=== PATIENT | female | born 1960 | race Caucasian/White ===

== ENCOUNTER → 2020-06-30 | Outpatient (CLI) | payer OTHER ==
[~2020-06-30] MED LIST: AMLO10 PO; AMOCLA875 PO; AMOX500 PO; ATOR80 PO; Ativan1 MG PO; BACL10 PO; CIPR500 PO; CLON.1; CLON.5; CLOP75 PO; CODACE30 PO; FISH1000 PO; FLUO10 PO; FLUO20; GABA100 PO; HYDACE5 PO; HYDCHL25; HYDCHL25 PO; HYDRA25 PO; IBUP800 PO; LISI10; LISI10 PO; LOSA25 PO; LOSA50 PO; META800; METO50 PO; NAPR550 PO; NEOCOLOTSU OT; NEOPOLHCSU OT; OXYACE5T; POTCHL10ER PO; POTCHL20ER PO; PROZAC20 MG PO; SULTRIDS PO; TERA5 PO; TRAM50 PO
== END | disposition home or self-care (01) ==
LOC: PLD 08:34 → LAB SHORT 08:34
DX: L28.2 Other prurigo (principal)
CPT/HCPCS: 88305; 88312

== ENCOUNTER → 2021-06-04 | Outpatient (CLI) | payer OTHER | END | disposition home or self-care (01) | LOC: LAB SHORT 07:58 | DX: N85.00 Endometrial hyperplasia, unspecified (principal) | CPT/HCPCS: 88305 ==

== ENCOUNTER → 2021-06-04 | Outpatient (CLI) | payer OTHER ==
[2021-06-06 16:11] LABS: HPV 16 Negative (Negative); HPV 18 Negative (Negative); HPV OTHER HR TYPES Negative (Negative)
== END | disposition home or self-care (01) ==
LOC: LAB 15:00 → LAB SHORT 15:00
PROVIDERS: Internal Medicine
DX: Z12.4 Encounter for screening for malignant neoplasm of cervix (principal)
CPT/HCPCS: 87624; G0123

== ENCOUNTER → 2021-06-25 | Outpatient (CLI) | payer OTHER ==
[~2021-06-25] MED LIST changes: +CEFD300 PO
[2021-06-25 19:46] LABS: Hematocrit 36.3 % (33.0-51.0); Hemoglobin 11.9 g/dL (11.5-16.0); Mean Corpuscular HGB 31.2 pg (26.0-34.0); Mean Corpuscular HGB Conc 32.8 g/dL (31.5-36.5); Mean Corpuscular Volume 95 fL (80-100); Mean Platelet Volume 12.1 fL (9.1-12.4); Platelet Count 233 K/mm3 (150-400); RDW Coefficient Variation 13.3 % (11.7-14.2); RDW Standard Deviation 46.1 fL (35.1-46.3); Red Blood Cell Count 3.81 M/mm3 (3.80-5.20); White Blood Cell Count 17.47 K/mm3 (4.00-11.30)
[2021-06-25 19:59] LABS: Albumin, Blood 2.7 g/dL (3.4-5.0); Albumin/Globulin Ratio 0.7 (0.8-1.8); Bilirubin, Total 0.6 mg/dL (0.1-1.0); Bun/Creatinine Ratio 16.8 (12.0-20.0); Calcium, Blood 7.9 mg/dL (8.5-10.1); Creatinine, Blood 1.79 mg/dL (0.40-1.00); Globulin, Blood 4.1 g/dL (2.2-4.0); Potassium, Blood 3.4 mmol/L (3.5-5.5); Total Protein, Blood 6.8 g/dL (6.4-8.2)
[2021-06-25 20:08] LABS: BAND PERCENT MAN 12 % (0-8); BASOPHILS PERCENT MAN 0 % (0-2); EOSINOPHILS PERCENT MAN 0 % (0-6); LYMPHOCYTES ABSOLUTE MAN 0.17 K/mm3 (0.84-5.20); LYMPHOCYTES PERCENT MAN 1 % (21-46); MONOCYTES PERCENT MAN 0 % (4-13); NEUTROPHILS ABSOLUTE MAN 17.29 K/mm3 (1.96-9.15); SEG NEUTROPHILS PERCENT MAN 87 % (41-73); TOTAL CELLS COUNTED 100
== END | disposition home or self-care (01) ==
LOC: LAB SHORT 14:53
PROVIDERS: Internal Medicine
DX: R10.9 Unspecified abdominal pain (principal)
CPT/HCPCS: 80053; 83690; 85025

== ENCOUNTER 2021-07-26 22:42 | Emergency (ER) | payer OTHER ==
[~2021-07-26] VITALS: Ht 172.7 cm; Wt 63.5 kg
[2021-07-26 23:47] LABS: BASOPHILS PERCENT AUTO 1 % (0-2); EOSINOPHILS PERCENT AUTO 4 % (0-6); Hematocrit 34.8 % (33.0-51.0); Mean Corpuscular HGB 29.2 pg (26.0-34.0); Mean Corpuscular HGB Conc 31.6 g/dL (31.5-36.5); Mean Corpuscular Volume 92 fL (80-100); Mean Platelet Volume 9.4 fL (9.1-12.4); Platelet Count 625 K/mm3 (150-400); RDW Standard Deviation 51.3 fL (35.1-46.3); Red Blood Cell Count 3.77 M/mm3 (3.80-5.20); White Blood Cell Count 8.33 K/mm3 (4.00-11.30)
[2021-07-26 23:52] LABS: IMMATURE GRAN ABSOLUTE AUTO 0.04 K/mm3 (0.00-0.10); IMMATURE GRAN PERCENT AUTO 1 % (0-1); LYMPHOCYTES ABSOLUTE AUTO 3.78 K/mm3 (0.84-5.20); LYMPHOCYTES PERCENT AUTO 45 % (21-46); MONOCYTES ABSOLUTE AUTO 0.49 K/mm3 (0.16-1.47); MONOCYTES PERCENT AUTO 6 % (4-13); NEUTROPHILS ABSOLUTE AUTO 3.62 K/mm3 (1.96-9.15); NEUTROPHILS PERCENT AUTO 43 % (41-73)
[2021-07-26 23:57] LABS: Bun/Creatinine Ratio 15.5 (12.0-20.0); Creatinine, Blood 1.03 mg/dL (0.40-1.00); Potassium, Blood 4.3 mmol/L (3.5-5.5)
[2021-07-27] MEDS ORDERED: SYNTHROID PO (00:12)
[2021-07-27] MEDS ORDERED: MONT10T PO (00:12)
[2021-07-27] MEDS ORDERED: Cetirizine HCl10 MG PO (00:13)
== END 2021-07-27 02:11 | disposition home or self-care (01) ==
LOC: ER 22:42
PROVIDERS: Student in an Organized Health Care Education/Training Program
DX: I10 Essential (primary) hypertension (principal); R51.9 Headache, unspecified; R07.89 Other chest pain; Z79.899 Other long term (current) drug therapy; Z87.891 Personal history of nicotine dependence
CPT/HCPCS: 70450; 71046; 80048; 83735; 83880; 84484; 85025; 93005; 93010; 96374; 96375; 99284-25; J1885; J2765; J7030

== ENCOUNTER → 2021-09-19 | Outpatient (CLI) | payer OTHER ==
[~2021-09-19] MED LIST changes: +Cetirizine HCl10 MG PO; +MONT10T PO; +SYNTHROID PO
== END ==
LOC: LAB SHORT 10:00 → LAB 10:00
DX: R82.90 Unspecified abnormal findings in urine (principal)
CPT/HCPCS: 87077; 87086; 87186

== ENCOUNTER → 2021-11-08 | Outpatient (CLI) | payer OTHER | END | disposition home or self-care (01) | LOC: LAB 14:20 → LAB SHORT 14:20 | DX: R30.9 Painful micturition, unspecified (principal) | CPT/HCPCS: 87077; 87086; 87186 ==

== ENCOUNTER → 2021-11-15 | Outpatient (CLI) | payer OTHER ==
[2021-11-15 12:16] LABS: Source, Urine Clean Catch
[2021-11-15 14:43] LABS: Bilirubin, Urine Neg (Neg); Blood, Urine 2+ (Neg); Color, Urine Yellow (P-Yellow); Glucose Qualitative, Urine Neg (Neg); Ketones, Urine Neg (Neg); Leukocyte Esterase, Urine 2+ (Neg); Nitrite, Urine Neg (Neg); Protein, Urine Neg (Neg); Specific Gravity, Urine 1.015 (1.003-1.022); Urobilinogen, Urine NORM (Normal)
[2021-11-15 15:24] LABS: Appearance, Urine Hazy (Clear)
[2021-11-15 15:25] LABS: Bacteria Mod /hpf; Squamous Epithelial Cells Few /hpf (Few)
== END | disposition home or self-care (01) ==
LOC: LAB SHORT 12:14 → LAB 12:14
PROVIDERS: Internal Medicine
DX: R30.0 Dysuria (principal)
CPT/HCPCS: 81001; 87086

== ENCOUNTER → 2023-01-20 | Outpatient (CLI) | payer OTHER ==
[2023-01-22 02:11] LABS: CHLAMYDIA TRACHOMATIS, NAA Negative (Negative)
== END | disposition home or self-care (01) ==
LOC: LAB SHORT 12:44 → LAB 12:44
PROVIDERS: Family Medicine
DX: R59.0 Localized enlarged lymph nodes (principal)
CPT/HCPCS: 87491; 87591

== ENCOUNTER 2024-05-30 05:12 | Inpatient (IN) | payer OTHER ==
[~2024-05-30] VITALS: Ht 172.7 cm; Wt 57.5 kg
[2024-05-30] MEDS ORDERED: Lactated Ringer's 1,000 ML IV ONE ×2 (06:10→13:00)
[2024-05-30] MEDS ORDERED: Acetaminophen 325 MG TABLET PO ONE (06:10)
[2024-05-30 06:54] LABS: BASOPHILS ABSOLUTE AUTO 0.05 K/mm3 (0.00-0.23); BASOPHILS PERCENT AUTO 0 % (0-2); EOSINOPHILS PERCENT AUTO 0 % (0-6); Hematocrit 28.6 % (33.0-51.0); Hemoglobin 10.4 g/dL (11.5-16.0); IMMATURE GRAN ABSOLUTE AUTO 0.11 K/mm3 (0.00-0.10); IMMATURE GRAN PERCENT AUTO 1 % (0-1); LYMPHOCYTES ABSOLUTE AUTO 0.36 K/mm3 (0.84-5.20); LYMPHOCYTES PERCENT AUTO 3 % (21-46); MONOCYTES ABSOLUTE AUTO 0.54 K/mm3 (0.16-1.47); MONOCYTES PERCENT AUTO 5 % (4-13); Mean Corpuscular HGB 35.3 pg (26.0-34.0); Mean Corpuscular HGB Conc 36.4 g/dL (31.5-36.5); Mean Corpuscular Volume 97 fL (80-100); Mean Platelet Volume 10.1 fL (9.1-12.4); NEUTROPHILS ABSOLUTE AUTO 10.98 K/mm3 (1.96-9.15); NEUTROPHILS PERCENT AUTO 91 % (41-73); Platelet Count 168 K/mm3 (150-400); RDW Coefficient Variation 12.9 % (11.7-14.2); RDW Standard Deviation 45.3 fL (35.1-46.3); Red Blood Cell Count 2.95 M/mm3 (3.80-5.20); White Blood Cell Count 12.04 K/mm3 (4.00-11.30)
[2024-05-30 07:13] LABS: Albumin, Blood 2.5 g/dL (3.4-5.0); Albumin/Globulin Ratio 0.6 (0.8-1.8); Bilirubin, Total 1.3 mg/dL (0.1-1.0); Bun/Creatinine Ratio 17.2 (12.0-20.0); Calcium, Blood 7.7 mg/dL (8.5-10.1); Creatinine, Blood 1.28 mg/dL (0.40-1.00); Globulin, Blood 3.9 g/dL (2.2-4.0); Potassium, Blood 2.5 mmol/L (3.5-5.5); Total Protein, Blood 6.4 g/dL (6.4-8.2)
[2024-05-30] MEDS ORDERED: Potassium Chloride 20 MEQ TabCR PO ONE (07:30)
[2024-05-30 07:32] LABS: Source, Urine Straight Cath
[2024-05-30 07:43] LABS: Appearance, Urine Hazy (Clear); Bilirubin, Urine Neg (Neg); Blood, Urine 5+ (Neg); Color, Urine Yellow (P-Yellow); Glucose Qualitative, Urine Neg (Neg); Ketones, Urine Neg (Neg); Leukocyte Esterase, Urine 3+ (Neg); Nitrite, Urine Neg (Neg); Protein, Urine 3+ (Neg); Specific Gravity, Urine 1.005 (1.003-1.022); Urobilinogen, Urine 1+ (Normal); pH, Urine 6.5 (5.0-8.0)
[2024-05-30 08:05] LABS: Bacteria Many /hpf; Red Blood Cells, Urine 25-50 /hpf (0-2); Squamous Epithelial Cells Many /hpf (Few); White Blood Cells, Urine 50-100 /hpf (0-5)
[2024-05-30] MEDS ORDERED: CefTRIAXone Sodium 1,000 MG in NS 50 ML IV ONE (08:35)
[2024-05-30] MEDS ORDERED: CEPH500 PO (09:20)
[2024-05-30] MEDS ORDERED: Ketorolac Tromethamine 30mg Vial IV ONE (10:55)
[2024-05-30 11:39] LABS: Mean Corpuscular HGB Conc 34.3 g/dL (31.5-36.5); Mean Corpuscular Volume 99 fL (80-100); Mean Platelet Volume 10.7 fL (9.1-12.4); Platelet Count 138 K/mm3 (150-400); RDW Coefficient Variation 12.9 % (11.7-14.2); RDW Standard Deviation 46.8 fL (35.1-46.3); Red Blood Cell Count 3.53 M/mm3 (3.80-5.20); White Blood Cell Count 2.08 K/mm3 (4.00-11.30)
[2024-05-30 12:52] LABS: BAND PERCENT MAN 36 % (0-8); BASOPHILS PERCENT MAN 0 % (0-2); EOSINOPHILS PERCENT MAN 0 % (0-6); LYMPHOCYTES ABSOLUTE MAN 0.37 K/mm3 (0.84-5.20); LYMPHOCYTES PERCENT MAN 18 % (21-46); MONOCYTES PERCENT MAN 0 % (4-13); SEG NEUTROPHILS PERCENT MAN 46 % (41-73); TOTAL CELLS COUNTED 100
[2024-05-30] MEDS ORDERED: Lactated Ringer's 1,000 ML IV SCH (13:00)
[2024-05-30] MEDS ORDERED: FLU VACC TS2024-25(6MOS UP)/PF 45 MCG/0.5 ML SYRINGE IM SCH (13:05)
[2024-05-30] MEDS ORDERED: PNEUMOC 20-VAL CONJ-DIP CRM/PF 0.5 ML SYRINGE IM ONE (13:05)
[2024-05-30] MEDS ORDERED: Acetaminophen 325 MG TABLET PO PRN (13:15)
[2024-05-30] MEDS ORDERED: Baclofen 10 MG Tab PO PRN (15:35)
[2024-05-30 16:58] LABS: Bun/Creatinine Ratio 15.2 (12.0-20.0); Calcium, Blood 7.6 mg/dL (8.5-10.1); Creatinine, Blood 1.32 mg/dL (0.40-1.00); Magnesium, Blood 0.6 mg/dL (1.6-2.4); Potassium, Blood 2.8 mmol/L (3.5-5.5)
[2024-05-30 17:16] VITALS: BP 108/73
[2024-05-30] MEDS ORDERED: Magnesium Sulf 2 GM/Water 50ML 50 ML IV SCH (17:20)
[2024-05-30] MEDS ORDERED: Potassium Chl 20MEQ/Water100ML 100 ML IV SCH (17:25)
[2024-05-30] MEDS ORDERED: NS 250 ML IV PRN (18:00)
--- NOTE | 2024-05-30 18:41 | NUR ---
SHIFT SUMMARY; ASSUMED CARE FROM ED IN EVENING. MOVES SELF FROM GURNEY TO BED INDEPENDANTLY. A/A/OX4. CALL LIGHT IN REACH, IV FLUIDS INFUSING, WILL GIVE REPORT TO ONCOMING NOC SHIFT RN TO ASSUME CARE.
[2024-05-30 20:30] VITALS: BP 100/66
[2024-05-30] MEDS ORDERED: Lactobacil 2-S.Thermo-Bifido 1 1 Cap PO SCH (21:00)
[2024-05-30 23:02] LABS: Magnesium, Blood 2.8 mg/dL (1.6-2.4); Potassium, Blood 3.2 mmol/L (3.5-5.5)
[2024-05-31 00:08] VITALS: BP 96/66
[2024-05-31 04:01] VITALS: BP 91/65
[2024-05-31 04:54] LABS: Hemoglobin 9.3 g/dL (11.5-16.0); Mean Corpuscular HGB 34.3 pg (26.0-34.0); Mean Corpuscular HGB Conc 34.4 g/dL (31.5-36.5); Mean Corpuscular Volume 100 fL (80-100); Mean Platelet Volume 11.2 fL (9.1-12.4); Platelet Count 174 K/mm3 (150-400); RDW Coefficient Variation 13.2 % (11.7-14.2); RDW Standard Deviation 47.2 fL (35.1-46.3); Red Blood Cell Count 2.71 M/mm3 (3.80-5.20); White Blood Cell Count 12.23 K/mm3 (4.00-11.30)
[2024-05-31 05:13] LABS: Albumin, Blood 2.2 g/dL (3.4-5.0); Albumin/Globulin Ratio 0.6 (0.8-1.8); Bilirubin, Total 0.4 mg/dL (0.1-1.0); Bun/Creatinine Ratio 18.2 (12.0-20.0); Calcium, Blood 8.1 mg/dL (8.5-10.1); Creatinine, Blood 1.1 mg/dL (0.40-1.00); Globulin, Blood 3.8 g/dL (2.2-4.0); Potassium, Blood 3.9 mmol/L (3.5-5.5)
[2024-05-31 05:56] LABS: BAND PERCENT MAN 2 % (0-8); BASOPHILS PERCENT MAN 0 % (0-2); EOSINOPHILS PERCENT MAN 0 % (0-6); LYMPHOCYTES ABSOLUTE MAN 1.58 K/mm3 (0.84-5.20); LYMPHOCYTES PERCENT MAN 13 % (21-46); MONOCYTES ABSOLUTE MAN 0.61 K/mm3 (0.16-1.47); MONOCYTES PERCENT MAN 5 % (4-13); NEUTROPHILS ABSOLUTE MAN 10.02 K/mm3 (1.96-9.15); SEG NEUTROPHILS PERCENT MAN 80 % (41-73); TOTAL CELLS COUNTED 100
[2024-05-31] MEDS ORDERED: Levothyroxine Sodium 0.025 MG Tab PO SCH (06:00)
--- NOTE | 2024-05-31 06:37 | NUR ---
SHIFT SUMMARY: PT IS A&OX4, MILDLY SLURRED SPEECH AT TIMES R/T PREVIOUS CVA'S. HYPOTENSIVE SYS 90'S, MAP >65. REMAINING VSS ON RA. SR 60'S-70'S. DENIES ANY PAIN. PRN BACLOFEN GIVEN FOR MUSCLE CONTRACTIONS R/T PREVIOUS CVA'S. PT STATES SHE DOES CONSUME 1-2 LONG ISLAND ICED TEAS, 3X A WEEK. NO S/S OF WITHDRAW AT THIS TIME. TOLERATING A REGULAR DIET, DENIES N/V. TAKES PILLS WHOLE WITH FLUID. SBA WITH CANE TO BR. VOIDING LARGE AMOUNTS OF CLEAR, YELLOW URINE. NO BM THIS SHIFT. BED IN LOWEST POSITION, CALL LIGHT WITHIN REACH. CALLS APPROPRIATELY AND IS ABLE TO ADVOCATE NEEDS EFFECTIVELY.
[2024-05-31 07:34] VITALS: BP 94/69
[2024-05-31] MEDS ORDERED: AmLODIPine Besylate 5 MG Tab PO SCH (09:00)
[2024-05-31] MEDS ORDERED: FLUoxetine HCL 20 MG CAP PO SCH (09:00)
[2024-05-31] MEDS ORDERED: Clopidogrel Bisulfate 75 MG Tab PO SCH (09:00)
[2024-05-31] MEDS ORDERED: Enoxaparin 40 MG/0.4 ML SYR SC SCH (09:00)
[2024-05-31] MEDS ORDERED: Atorvastatin 10 MG Tab PO SCH (09:00)
[2024-05-31] MEDS ORDERED: Losartan Potassium 50 MG Tab PO SCH (09:00)
[2024-05-31] MEDS ORDERED: CefTRIAXone Sodium 1,000 MG in NS 100 ML IV SCH (09:00)
[2024-05-31] MEDS ORDERED: FLUoxetine HCL 20 MG CAP PO ONE (10:10)
[2024-05-31 11:38] LABS: Hematocrit 31.3 % (33.0-51.0); Hemoglobin 10.8 g/dL (11.5-16.0); Mean Corpuscular HGB 34.6 pg (26.0-34.0); Mean Corpuscular HGB Conc 34.5 g/dL (31.5-36.5); Mean Corpuscular Volume 100 fL (80-100); Mean Platelet Volume 10.9 fL (9.1-12.4); Platelet Count 204 K/mm3 (150-400); RDW Coefficient Variation 13.2 % (11.7-14.2); RDW Standard Deviation 48.4 fL (35.1-46.3); RETICULOCYTE ABSOLUTE 0.0624 M/mm3 (0.0200-0.1100); Red Blood Cell Count 3.12 M/mm3 (3.80-5.20); White Blood Cell Count 14.21 K/mm3 (4.00-11.30)
[2024-05-31 12:22] LABS: Percent Saturation 6.6 % (15.0-50.0)
[2024-05-31 14:32] LABS: Adenovirus F 40/41 Not Detected (NOT DETECT); Astrovirus Not Detected (NOT DETECT); Campylobacter Sp Not Detected (NOT DETECT); Cryptosporidium Not Detected (NOT DETECT); Cyclospora Cayetanensis Not Detected (NOT DETECT); E. Coli O157 Not Detected (NOT DETECT); Entamoeba Histolytica Not Detected (NOT DETECT); Enteroaggregative E. coli-EAEC Not Detected (NOT DETECT); Enteropathogenic E. coli-EPEC Not Detected (NOT DETECT); Enterotoxigenic E. coli-ETEC Not Detected (NOT DETECT); Giardia Lamblia Not Detected (NOT DETECT); Norovirus GI/GII Not Detected (NOT DETECT); Plesiomonas Shigelloides Not Detected (NOT DETECT); Rotavirus A Not Detected (NOT DETECT); Salmonella Sp Not Detected (NOT DETECT); Sapovirus Not Detected (NOT DETECT); Shiga Toxin-prod E. coli-STEC Not Detected (NOT DETECT); Shigella/Enteroin E. coli-EIEC Not Detected (NOT DETECT); Vibrio Cholerae Not Detected (NOT DETECT); Vibrio Sp Not Detected (NOT DETECT); Yersinia Enterocolitica Not Detected (NOT DETECT)
[2024-05-31 15:25] VITALS: BP 100/67
--- NOTE | 2024-05-31 17:22 | NUR ---
SHIFT SUMMARY THE PT IS A&OX4, 1P SBA W/ CANE D/T CHRONIC LEFT SIDED DEFICIT FROM PREVIOUS CVA'S. PHYSICAL THERAPY WORKED WITH THE PT AND SIGNED OFF ON HER. THE PT IS MEDICAL STATUS W/O TELE. SHE WAS SR ON TELE. BP STABLE. SHE HAS BEEN ON RA AND DENIES ANY SOB. NO ACUTE EVENTS THIS SHIFT. SEE NOTES FOR ANY UPDATES.
[2024-05-31] MEDS ORDERED: Ferrous Gluconate 325 MG Tablet PO ONE (17:50)
--- NOTE | 2024-05-31 18:24 | NUR ---
REPORT GIVEN TO ALTA LOAIZA. PT TRANSFERING TO ROOM 302. NO FURTHER NOTES FROM THIS RN.
--- NOTE | 2024-05-31 18:40 | NUR ---
PT TRANSFERED FROM PCU VIA WHEELCHAIR. REPORT RECIEVED FROM RUTH LOAIZA.
[2024-05-31 19:22] VITALS: BP 120/80
[2024-06-01 04:48] VITALS: BP 115/79
[2024-06-01 06:18] LABS: BASOPHILS ABSOLUTE AUTO 0.02 K/mm3 (0.00-0.23); BASOPHILS PERCENT AUTO 0 % (0-2); EOSINOPHILS ABSOLUTE AUTO 0.05 K/mm3 (0.00-0.68); EOSINOPHILS PERCENT AUTO 1 % (0-6); Hematocrit 27.3 % (33.0-51.0); Hemoglobin 9.2 g/dL (11.5-16.0); IMMATURE GRAN ABSOLUTE AUTO 0.07 K/mm3 (0.00-0.10); IMMATURE GRAN PERCENT AUTO 1 % (0-1); LYMPHOCYTES ABSOLUTE AUTO 0.88 K/mm3 (0.84-5.20); LYMPHOCYTES PERCENT AUTO 12 % (21-46); MONOCYTES PERCENT AUTO 8 % (4-13); Mean Corpuscular HGB 33.7 pg (26.0-34.0); Mean Corpuscular HGB Conc 33.7 g/dL (31.5-36.5); Mean Corpuscular Volume 100 fL (80-100); NEUTROPHILS ABSOLUTE AUTO 5.54 K/mm3 (1.96-9.15); NEUTROPHILS PERCENT AUTO 77 % (41-73); Platelet Count 190 K/mm3 (150-400); RDW Coefficient Variation 13.2 % (11.7-14.2); RDW Standard Deviation 48.3 fL (35.1-46.3); Red Blood Cell Count 2.73 M/mm3 (3.80-5.20); White Blood Cell Count 7.16 K/mm3 (4.00-11.30)
--- NOTE | 2024-06-01 06:41 | NUR ---
Shift Summary Pt fairly anxious t/o the shift. She requested tylenol for some abdominal pressure and baclofen for chronic tremors. She is AOx4, 1SBA in the room with a cane for assitance. VSS, no acute changes.
[2024-06-01 06:44] LABS: Albumin, Blood 2.3 g/dL (3.4-5.0); Albumin/Globulin Ratio 0.6 (0.8-1.8); Bilirubin, Total 0.3 mg/dL (0.1-1.0); Bun/Creatinine Ratio 20.5 (12.0-20.0); Calcium, Blood 7.6 mg/dL (8.5-10.1); Creatinine, Blood 0.93 mg/dL (0.40-1.00); Globulin, Blood 3.8 g/dL (2.2-4.0); Magnesium, Blood 1.8 mg/dL (1.6-2.4); Potassium, Blood 3.1 mmol/L (3.5-5.5); Total Protein, Blood 6.1 g/dL (6.4-8.2)
[2024-06-01 07:39] VITALS: BP 105/69
[2024-06-01] MEDS ORDERED: Potassium Chloride 20 MEQ in NS 90 ML IV SCH (08:00)
[2024-06-01] MEDS ORDERED: FLUoxetine HCL 20 MG CAP PO SCH (09:00)
[2024-06-01] MEDS ORDERED: Potassium Chloride 20 MEQ TabCR PO ONE (11:00)
[2024-06-01] MEDS ORDERED: ATOR20 PO (12:32)
[2024-06-01] MEDS ORDERED: EUTHYROX50 MCG PO (12:34)
[2024-06-01] MEDS ORDERED: VISBIOME 112.51 EACH PO (12:35)
[2024-06-01] MEDS ORDERED: CEFP200 PO (12:35)
--- NOTE | 2024-06-01 13:47 | NUR ---
PT DISCHARGED TO HOME. DISCHARGE INSTRUCTIONS PROVIDED AND EDUCATED ON. ALL VALUABLES RETURNED AND SENT HOME WITH THE PT.
== END 2024-06-01 13:39 | disposition home or self-care (01) | DRG 872 ==
LOC: ER 05:12 → ERHOLD 05:13 → PCU 05:13 → ER 12:26 → ERHOLD 12:26 → PCU 17:07 → MEDS 05-31 15:09 → PCU 05-31 15:09 → MEDS 05-31 18:39 → ENPENDDIS 06-01 11:46 → MEDS 06-01 13:39
PROVIDERS: Emergency Medicine; Family Medicine; ADMIT Hospitalist
DX: A41.51 Sepsis due to Escherichia coli [E. coli] (principal); I69.354 Hemiplegia and hemiparesis following cerebral infarction affecting left non-dominant side; N10 Acute pyelonephritis; E87.20 Acidosis, unspecified; N17.9 Acute kidney failure, unspecified; R65.20 Severe sepsis without septic shock; I10 Essential (primary) hypertension; E87.6 Hypokalemia; E83.42 Hypomagnesemia; D50.0 Iron deficiency anemia secondary to blood loss (chronic); N93.8 Other specified abnormal uterine and vaginal bleeding; F41.9 Anxiety disorder, unspecified; F32.A Depression, unspecified; E03.9 Hypothyroidism, unspecified; Z87.891 Personal history of nicotine dependence; Z79.02 Long term (current) use of antithrombotics/antiplatelets; Z79.890 Hormone replacement therapy
CPT/HCPCS: 36415; 74177; 80048; 80053; 81001; 82607; 82728; 82746; 83540; 83550; 83605; 83735; 84132; 85025; 85027; 85045; 87040; 87077; 87086; 87186; 87507; 94760; 96361; 96365; 96366; 96367; 96372; 96375; 97116; 97162; 99284-25; A9270; G0378; J0696; J1650; J1885; J3475; J3480; J7050; J7120; Q9967

== ENCOUNTER 2024-06-01 18:47 | Observation (INO) | payer OTHER ==
[~2024-06-01] VITALS: Ht 165.1 cm; Wt 59.0 kg
[~2024-06-01 18:47] MED LIST changes: +ATOR20 PO; +CEFP200 PO; +CEPH500 PO; +EUTHYROX50 MCG PO; +VISBIOME 112.51 EACH PO
[2024-06-01 19:49] LABS: BASOPHILS ABSOLUTE AUTO 0.02 K/mm3 (0.00-0.23); BASOPHILS PERCENT AUTO 0 % (0-2); EOSINOPHILS ABSOLUTE AUTO 0.03 K/mm3 (0.00-0.68); EOSINOPHILS PERCENT AUTO 1 % (0-6); Hematocrit 29.3 % (33.0-51.0); Hemoglobin 10.3 g/dL (11.5-16.0); IMMATURE GRAN ABSOLUTE AUTO 0.07 K/mm3 (0.00-0.10); IMMATURE GRAN PERCENT AUTO 1 % (0-1); LYMPHOCYTES ABSOLUTE AUTO 1.07 K/mm3 (0.84-5.20); LYMPHOCYTES PERCENT AUTO 16 % (21-46); MONOCYTES ABSOLUTE AUTO 0.61 K/mm3 (0.16-1.47); MONOCYTES PERCENT AUTO 9 % (4-13); Mean Corpuscular HGB 34.7 pg (26.0-34.0); Mean Corpuscular HGB Conc 35.2 g/dL (31.5-36.5); Mean Corpuscular Volume 99 fL (80-100); Mean Platelet Volume 11.2 fL (9.1-12.4); NEUTROPHILS ABSOLUTE AUTO 4.75 K/mm3 (1.96-9.15); NEUTROPHILS PERCENT AUTO 73 % (41-73); Platelet Count 222 K/mm3 (150-400); RDW Coefficient Variation 13.1 % (11.7-14.2); RDW Standard Deviation 47.1 fL (35.1-46.3); Red Blood Cell Count 2.97 M/mm3 (3.80-5.20); White Blood Cell Count 6.55 K/mm3 (4.00-11.30)
[2024-06-01 19:54] LABS: Source, Urine Clean Catch
[2024-06-01 19:56] LABS: Appearance, Urine Clear (Clear); Bilirubin, Urine Neg (Neg); Blood, Urine 4+ (Neg); Color, Urine Yellow (P-Yellow); Glucose Qualitative, Urine Neg (Neg); Ketones, Urine Neg (Neg); Leukocyte Esterase, Urine 1+ (Neg); Nitrite, Urine Neg (Neg); Protein, Urine 1+ (Neg); Specific Gravity, Urine 1.005 (1.003-1.022); Urobilinogen, Urine NORM (Normal)
[2024-06-01 19:56] LABS: Albumin, Blood 2.7 g/dL (3.4-5.0); Albumin/Globulin Ratio 0.6 (0.8-1.8); Bilirubin, Total 0.3 mg/dL (0.1-1.0); Bun/Creatinine Ratio 17.2 (12.0-20.0); Calcium, Blood 8.2 mg/dL (8.5-10.1); Creatinine, Blood 0.87 mg/dL (0.40-1.00); Globulin, Blood 4.5 g/dL (2.2-4.0); Potassium, Blood 3.5 mmol/L (3.5-5.5); Total Protein, Blood 7.2 g/dL (6.4-8.2)
[2024-06-01 20:15] LABS: Bacteria Few /hpf; Squamous Epithelial Cells Rare /hpf (Few)
[2024-06-01] MEDS ORDERED: FLU VACC TS2024-25(6MOS UP)/PF 45 MCG/0.5 ML SYRINGE IM ONE (21:35)
[2024-06-01] MEDS ORDERED: Ondansetron HCl 2 MG / ML 2ML Vial IV PRN (21:35)
[2024-06-01] MEDS ORDERED: NS 1,000 ML IV SCH (21:35)
[2024-06-01] MEDS ORDERED: CefTRIAXone Sodium 1,000 MG in NS 100 ML IV SCH (22:00)
--- NOTE | 2024-06-01 22:20 | NUR ---
PT APPEARED TO HAVE ABSENCE SEIZURE WITNESSED BY RN: SHE WAS SPEAKING APPROPRIATELY AFTER CALLING FOR ASSISTANCE D/T "FEELING FUNNY". SHE DESCRIBED HER BACK FEELING "WET" DESPITE NO PALPABLE DIAPHORESIS AND SKIN FELT WARM AND DRY TO TOUCH. PT REQUESTED TO SIT UP AND LEAN FORWARD IN EFFORT "TO GET AWAY OF WET SENSATION". PT WAS MOVING ALL EXT'S W/STRENGTH INTACT AND WNL AT THE TIME. GABBI AND PT DENIED ALL OTHER S/S DISTRESS OR ABNORMALITY. THEN SUDDENLY SHE STATED HER ARMS FELT "STUCK" AND SHE SEEMINGLY LACKED GROSS MOTOR CONTROL. HER FINGERS BEGAN SPONTANEOUSLY TREMBLING AND SHE COULD ONLY SPEEK A FEW MUMBLED WORDS IN RESPONSE TO QUESTIONING. EYES TRACKED INITIALLY TO VOICE DURING EPISODE THEN BECAME A BLANK GAZE. SHE BECAME VERBALLY NON-RESPONSIVE AND EYES BEGAN TO TEAR UP. VSS T/O EVENT THAT LASTED APPROX 15-20 MINS. 1MG IV ATIVAN WAS GIVEN AT 2211 AND PT FELL ASLEEP W/HAND TREMORS DISIPATING. PT NOW SLIGHLTY ROUSES TO VOICE BUT SHE IS TOO DROWSY TO INTERACT W/STAFF. VITALS REMAIN STABLE AND SHE'S RESTING COMFORTABLY W/O DISTRESS. WCTM CLOSELY FOR CHANGES AND ONGOING SEIZURE ACTIVITY.
--- NOTE | 2024-06-01 22:28 | NUR ---
REPORT RECEIVED FROM ELEANOR (ASSISTANT PROFESSOR OF BIOLOGY) AND AWAITING PT T/F TO ROOM 357.
[2024-06-01 23:04] VITALS: BP 122/77
--- NOTE | 2024-06-01 23:30 | NUR ---
STAFF ROUNDED ON PATIENT AND SHE WAS SLIGHTLY RESTLESS IN BED. NO APPARENT SEIZURE ACTIVITY OBSERVED BUT SHE REMAINS VERY DROWSY. PT WAS ABLE TO VOCALIZE NEED TO VOID AND WAS ASSISTED TO BSC W/2PA. PT VOIDED APPROPRIATELY THEN WAS T/F'D BACK TO BED W/VITALS RECHECKED AND WNL. SHE DENIED COMPLAINTS AND QUICKLY FELL BACK TO W/O S/S DISTRESS.
--- NOTE | 2024-06-02 00:29 | NUR ---
PT SLEEPING W/O S/S DISTRESS BUT ROUSES TO VOICE AND IS ABLE TO ANSWER Q'S W/BRIEF RESPONSES. NO ONGOING SEIZURE ACTIVITY OBSERVED AT THIS TIME.
[2024-06-02 02:50] VITALS: BP 107/75
--- NOTE | 2024-06-02 05:18 | NUR ---
ADMIT AND SUMMARY: PT T/F'D TO ROOM 357 VIA GURNEY AT 2250. SHE'S A/OX4, WAS ORIENTED TO ROOM AND CALL SYSTEM AND IS PLEASANT AND COOPERATIVE W/CARE. PT USES CANE AT BASELINE, IS AWARE OF LIMITATIONS AND KNOWS SBA IS REQUIRED OOB D/T WEAKNESS AND FALL PRECEEDING ADMIT. BED ALARM ON FOR POSS.IMPULSIVITY AND URGENCY TO VOID. NS INFUSES AT 100 ML/HR AND IV ABX PROVIDED IN ER. PT APPEARS FLUSHED W/SLIGHT JAW SWELLING OF UNKNOWN ORIGIN BUT THIS APPEARS TO HAVE IMPROVED SOME T/O NOCTE. SHE HAS L.SIDE WEAKNESS AND AN UNCOORDICATED BUT STEADY GAIT FROM HX OF CVA. SPEECH IS OCC.STUTTERED BUT SHE CONTRIBUTES IT TO FEELING "FUZZY HEADED" AT TIMES. SHE DENIES NAUSEA, PAIN, CP AND ALL OTHER COMPLAINTS. NO ACUTE CHANGES, VSS AND AFEBRILE. WCTM AND REPORT TO DAY RN.
[2024-06-02 05:20] LABS: BASOPHILS ABSOLUTE AUTO 0.02 K/mm3 (0.00-0.23); BASOPHILS PERCENT AUTO 0 % (0-2); EOSINOPHILS ABSOLUTE AUTO 0.04 K/mm3 (0.00-0.68); EOSINOPHILS PERCENT AUTO 1 % (0-6); Hematocrit 26.7 % (33.0-51.0); Hemoglobin 9.1 g/dL (11.5-16.0); IMMATURE GRAN ABSOLUTE AUTO 0.07 K/mm3 (0.00-0.10); IMMATURE GRAN PERCENT AUTO 1 % (0-1); LYMPHOCYTES ABSOLUTE AUTO 1.01 K/mm3 (0.84-5.20); LYMPHOCYTES PERCENT AUTO 19 % (21-46); MONOCYTES ABSOLUTE AUTO 0.64 K/mm3 (0.16-1.47); MONOCYTES PERCENT AUTO 12 % (4-13); Mean Corpuscular HGB 34.1 pg (26.0-34.0); Mean Corpuscular HGB Conc 34.1 g/dL (31.5-36.5); Mean Corpuscular Volume 100 fL (80-100); Mean Platelet Volume 10.9 fL (9.1-12.4); NEUTROPHILS ABSOLUTE AUTO 3.48 K/mm3 (1.96-9.15); NEUTROPHILS PERCENT AUTO 66 % (41-73); Platelet Count 201 K/mm3 (150-400); RDW Coefficient Variation 13.2 % (11.7-14.2); RDW Standard Deviation 48.1 fL (35.1-46.3); Red Blood Cell Count 2.67 M/mm3 (3.80-5.20); White Blood Cell Count 5.26 K/mm3 (4.00-11.30)
[2024-06-02 05:51] LABS: Albumin, Blood 2.3 g/dL (3.4-5.0); Albumin/Globulin Ratio 0.6 (0.8-1.8); Bilirubin, Total 0.2 mg/dL (0.1-1.0); Bun/Creatinine Ratio 13.8 (12.0-20.0); Calcium, Blood 8.1 mg/dL (8.5-10.1); Creatinine, Blood 0.8 mg/dL (0.40-1.00); Globulin, Blood 3.8 g/dL (2.2-4.0); Potassium, Blood 3.5 mmol/L (3.5-5.5); Total Protein, Blood 6.1 g/dL (6.4-8.2)
[2024-06-02] MEDS ORDERED: Levothyroxine Sodium 0.025 MG Tab PO SCH (06:00)
[2024-06-02 07:26] VITALS: BP 108/85
[2024-06-02] MEDS ORDERED: Insulin Human Lispro 100 Units/ML 3ML Syringe SC SCH (07:30)
[2024-06-02] MEDS ORDERED: FLUoxetine HCL 20 MG CAP PO SCH (09:00)
[2024-06-02] MEDS ORDERED: Atorvastatin 10 MG Tab PO SCH (09:00)
[2024-06-02] MEDS ORDERED: Lactobacil 2-S.Thermo-Bifido 1 1 Cap PO SCH (09:00)
[2024-06-02] MEDS ORDERED: Clopidogrel Bisulfate 75 MG Tab PO SCH (09:00)
[2024-06-02] MEDS ORDERED: Enoxaparin 40 MG/0.4 ML SYR SC SCH (09:00)
[2024-06-02] MEDS ORDERED: Baclofen 10 MG Tab PO SCH (09:00)
--- NOTE | 2024-06-02 16:30 | NUR ---
DISCHARGE NOTE PATIENT EDUCATED ON DISCHARGE PACKET AND TO PICKUP PRESCRIPTION FOR ANTIBIOTIC IN ORDER TO START TONIGHT. IV REMOVED. EDUCATED TO DRINK PLENTY OF FLUIDS AND TAKE IT EASY FOR THE NEXT WEEK. PATIENT HAD DECLINED HOME HEALTH. ESCORTED DOWN VIA WHEELCHAIR BY THIS RN. NO NEW QUESTIONS OR CONCERNS.
== END 2024-06-02 16:30 | disposition home or self-care (01) ==
LOC: ER 18:47 → ERHOLD 21:30 → MEDS 21:30 → ERHOLD 21:30 → MEDS 22:43 → ERHOLD 22:43 → MEDS 22:44
PROVIDERS: Nurse Practitioner Acute Care; Student in an Organized Health Care Education/Training Program; ADMIT Student in an Organized Health Care Education/Training Program
DX: R53.1 Weakness (principal); W18.30XA Fall on same level, unspecified, initial encounter; N12 Tubulo-interstitial nephritis, not specified as acute or chronic; N17.9 Acute kidney failure, unspecified; I69.954 Hemiplegia and hemiparesis following unspecified cerebrovascular disease affecting left non-dominant side; I10 Essential (primary) hypertension; E11.9 Type 2 diabetes mellitus without complications; E03.9 Hypothyroidism, unspecified; D64.9 Anemia, unspecified; N93.8 Other specified abnormal uterine and vaginal bleeding; F32.A Depression, unspecified; F41.9 Anxiety disorder, unspecified; Z79.890 Hormone replacement therapy; Z79.02 Long term (current) use of antithrombotics/antiplatelets; Z79.899 Other long term (current) drug therapy; Z87.891 Personal history of nicotine dependence
CPT/HCPCS: 36415; 80053; 81001; 82947; 83605; 83735; 84484; 85025; 87086; 93005; 93010; 96372; 97110; 97116; 97161; 99285-25; A9270; G0378; J0696; J1650; J7030

== ENCOUNTER → 2024-06-23 | Outpatient (CLI) | payer OTHER | END | disposition home or self-care (01) | LOC: LAB SHORT 11:30 → LAB 11:30 | DX: N39.0 Urinary tract infection, site not specified (principal) | CPT/HCPCS: 87077; 87086; 87186 ==

== ENCOUNTER → 2024-11-11 | Outpatient (CLI) | payer OTHER ==
[2024-11-11 19:22] LABS: Bacterial Vaginosis PCR Negative (NEGATIVE); Candida Group, PCR NOT DETECTED (NOT DETECT); Candida glabrata-krusei, PCR NOT DETECTED (NOT DETECT)
== END ==
LOC: LAB SHORT 17:38 → LAB 17:38
PROVIDERS: Student in an Organized Health Care Education/Training Program
DX: R30.0 Dysuria (principal); N89.8 Other specified noninflammatory disorders of vagina
CPT/HCPCS: 81515; 87077; 87086; 87186

== ENCOUNTER → 2024-12-08 | Outpatient (CLI) | payer OTHER | LOC: LAB SHORT 13:05 → LAB 13:05 | DX: N39.0 Urinary tract infection, site not specified (principal); R30.0 Dysuria | CPT/HCPCS: 87077; 87086; 87186 ==

== ENCOUNTER → 2025-03-29 | Outpatient (CLI) | payer OTHER ==
[2025-03-29 19:04] LABS: BASOPHILS ABSOLUTE AUTO 0.07 K/mm3 (0.00-0.23); BASOPHILS PERCENT AUTO 1 % (0-2); EOSINOPHILS ABSOLUTE AUTO 0.08 K/mm3 (0.00-0.68); EOSINOPHILS PERCENT AUTO 1 % (0-6); Hematocrit 39.5 % (33.0-51.0); Hemoglobin 13.1 g/dL (11.5-16.0); IMMATURE GRAN ABSOLUTE AUTO 0.02 K/mm3 (0.00-0.10); IMMATURE GRAN PERCENT AUTO 0 % (0-1); LYMPHOCYTES ABSOLUTE AUTO 1.66 K/mm3 (0.84-5.20); LYMPHOCYTES PERCENT AUTO 20 % (21-46); MONOCYTES ABSOLUTE AUTO 0.40 K/mm3 (0.16-1.47); MONOCYTES PERCENT AUTO 5 % (4-13); Mean Corpuscular HGB Conc 33.2 g/dL (31.5-36.5); Mean Corpuscular Volume 91 fL (80-100); NEUTROPHILS ABSOLUTE AUTO 5.97 K/mm3 (1.96-9.15); NEUTROPHILS PERCENT AUTO 73 % (41-73); NRBC ABSOLUTE 0.00 K/mm3 (0.00-0.02); NRBC Auto 0.0 /100 WBC (0.0-0.2); Platelet Count 377 K/mm3 (150-400); RDW Coefficient Variation 12.5 % (11.7-14.2); RDW Standard Deviation 41.0 fL (35.1-46.3)
[2025-03-29 20:18] LABS: Alanine Aminotransfer (ALT/SGP 37 U/L (12-78); Albumin, Blood 4.3 g/dL (3.4-5.0); Albumin/Globulin Ratio 1.0 (0.8-1.8); Anion Gap 13 mmol/L (3-11); Aspartate Aminotrans (AST/SGOT 27 U/L (12-37); Bilirubin, Total 0.4 mg/dL (0.1-1.0); Blood Urea Nitrogen 24 mg/dL (8-24); CHOL/HDL RATIO 1.3; CO2, Blood 27 mmol/L (21-32); Calcium, Blood 10.5 mg/dL (8.5-10.1); Chloride, Blood 98 mmol/L (98-108); Cholesterol 144 mg/dL (50-200); Creatinine, Blood 1.21 mg/dL (0.40-1.00); Ferritin, Serum 78 ng/mL (8-252); Globulin, Blood 4.4 g/dL (2.2-4.0); Glucose, Blood 88 mg/dL (70-99); HDL Cholesterol 109 mg/dL (>39); LDL/HDL RATIO 0.1; Low Density Lipoprotein Chol 15 mg/dL (0-110); Potassium, Blood 4.6 mmol/L (3.5-5.5); Sodium, Blood 133 mmol/L (136-145); Total Iron Binding Capacity 377 ug/dL (250-450); Total Protein, Blood 8.7 g/dL (6.4-8.2); Triglycerides 102 mg/dL (30-160); Very Low Density Lipoprot Chol 20 mg/dL (6-32)
== END | disposition home or self-care (01) ==
LOC: LAB SHORT 14:45 → LAB 14:45
PROVIDERS: Family Medicine
DX: E83.51 Hypocalcemia (principal); D64.9 Anemia, unspecified; E78.5 Hyperlipidemia, unspecified; I10 Essential (primary) hypertension; Z86.73 Personal history of transient ischemic attack (TIA), and cerebral infarction without residual deficits
CPT/HCPCS: 80053; 80061; 82306; 82728; 83540; 83550; 83970; 85025